=== PATIENT | female | born 1930 | race Caucasian/White ===

== ENCOUNTER 2019-04-06 09:09 | Emergency (ER) | payer MEDICARE ==
[~2019-04-06] VITALS: Ht 157.5 cm; Wt 50.4 kg
[2019-04-06] MEDS ORDERED: DORZ2SOL5 OU (09:40)
--- NOTE | 2019-04-06 10:12 | REP ---
CT brain: 04/06/2019. Indication: Dizziness. Comparison: None. Technique: Unenhanced axial CT images of the brain were obtained from skull base to vertex. Findings: There is no acute intracranial hemorrhage, acute cortical infarction, mass effect or hydrocephalous. 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 There is no significant fluid within the visualized paranasal sinuses/mastoid air cells. Age-related volume loss is noted. Minimal sequelae of chronic small vessel disease are present. Impression: No acute intracranial process. Electronically Signed by Thompson Muse DO 04/06/2019 10:03 A
[2019-04-06 10:19] LABS: BASO % 0.7 % (0.0-1.0); EOS # 0.2 10^3/uL (0.0-0.5); EOS % 3.7 % (0.0-3.0); HEMATOCRIT 42.4 % (36.0-47.0); HEMOGLOBIN 13.7 g/dl (12.0-15.5); LYMPH # 1.2 10^3/uL (1.5-5.0); LYMPH % 29.5 % (24.0-44.0); MEAN CORPUSCULAR HEMOGLOBIN 31.2 pg (27.0-33.0); MEAN CORPUSCULAR HGB CONC 32.3 g/dl (32.0-36.5); MEAN CORPUSCULAR VOLUME 96.6 fl (80.0-96.0); MONO # 0.4 10^3/uL (0.0-0.8); MONO % 8.9 % (0.0-5.0); NEUTROPHILS # 2.3 10^3/uL (1.5-8.5); PLATELET COUNT, AUTOMATED 220 10^3/uL (150-450); RED BLOOD COUNT 4.39 10^6/uL (4.00-5.40)
[2019-04-06 10:51] LABS: BLOOD UREA NITROGEN 15 MG/DL (7-18); CALCIUM LEVEL 9.7 MG/DL (8.8-10.2); CARBON DIOXIDE LEVEL 29 MEQ/L (21-32); CHLORIDE LEVEL 108 MEQ/L (98-107); CK-MB VALUE MASS 1.8 NG/ML (<3.6); CPK CREATINE PHOSPHOKINASE 81 U/L (26-192); CREATININE FOR GFR 0.61 MG/DL (0.55-1.30); GLOMERULAR FILTRATION RATE > 60.0 (>32); GLUCOSE, FASTING 92 MG/DL (70-100); MB/CK RELATIVE INDEX 2.22 (< OR =4); POTASSIUM SERUM 3.9 MEQ/L (3.5-5.1); SODIUM LEVEL 141 MEQ/L (136-145); TROPONIN I < 0.02 NG/ML (< 0.10)
[2019-04-06] MEDS ORDERED: PROHANCE 279.3MG/ML 15ML VIAL (A9576) As Ordered ONE (12:29)
--- NOTE | 2019-04-06 13:36 | REP ---
MRI brain: 04/06/2019. Indication: Dizziness. Comparison: CT brain completed the same day. Technique: Multiplanar short and long TR sequences of the brain were obtained including IV post-gadolinium imaging. 10 ml IV ProHance were administered. Findings: There are no areas of restricted diffusion or pathologic gadolinium enhancement. There is no intracranial mass effect, hydrocephalus or significant hemorrhage. The midline structures, and craniocervical junction are unremarkable. There are a few small scattered foci of elevated CT signal throughout the periventricular and subcortical white matter. 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 Impression: No acute intracranial process. Sequelae of chronic microangiopathic ischemic disease. Electronically Signed by Thompson Muse DO 04/06/2019 01:27 P
[2019-04-06 13:45] VITALS: BP 121/59
--- NOTE | 2019-04-07 17:45 | ECGEPIP ---
[facility] - ED Test Date: 2019-04-06 Pat Name: TREVIN CR Department: Room: - Gender: Female [employer]: CIERRA : [id number] Requested By: David Bolanos Order Number: [id number] Reading MD: Siobhan Schumacher Measurements Intervals [place] Rate: 55 P: 72 OK: 172 QRS: 2 QRSD: 81 T: 34 QT: 404 QTc: 387 Interpretive Statements SINUS BRADYCARDIA VOLTAGE CRITERIA FOR LVH PROBABLE INFERIOR MYOCARDIAL INFARCTION, PROBABLY OLD baseline artifact may affect interpretation NO PRIOR Electronically Signed on 04-07-2019 17:45:23 EST by Siobhan Schumacher
== END 2019-04-06 14:03 | disposition home or self-care (01) ==
LOC: M ED 09:09
DX: R42 Dizziness and giddiness (principal); R26.9 Unspecified abnormalities of gait and mobility; R00.1 Bradycardia, unspecified; Z79.899 Other long term (current) drug therapy
CPT/HCPCS: 36415; 70450; 70553; 80048; 82550; 82553; 84443; 84484; 85025; 93005; 99284; A9576